=== PATIENT | male | born 1980 | race African-American/Black ===

== ENCOUNTER 2017-10-01 23:26 | Emergency (ER) | payer MEDICAID ==
[~2017-10-01] VITALS: Ht 198.1 cm; Wt 95.3 kg
[2017-10-01 23:45] VITALS: BP 128/72
[2017-10-01] MEDS ORDERED: DiphenhydrAMINE 50mg/ml Inj IVP ONE (23:45)
[2017-10-01] MEDS ORDERED: Solu-MEDROL 125mg Inj IVP ONE (23:45)
[2017-10-01] MEDS ORDERED: PREDNISONE20 MG ORAL (23:48)
[2017-10-01] MEDS ORDERED: BENADRYL25 MG ORAL (23:48)
[2017-10-01] MEDS ORDERED: EPIPEN 2-P0.3 MG/0.3 IM (23:48)
--- NOTE | 2017-10-01 23:48 | Emergency Room Report ---
History of Present Illness General Chief Complaint: Allergic Reaction Source: Patient, EMS Present Illness HPI Is a 36-year-old male with a history of severe allergic reaction to peanut. He presents with chief complaint of a rash and itching to the body. He was at his sister home. He had two burritos and drinks. He stopped by a don't of place and had glazed doughnuts. Shortly afterward he broke out in a rash. Itching. No tongue problem. He had an EpiPen in the past. He called 911. No meds were given. No shortness of breath. No nausea no vomiting. Allergies: Uncoded Allergies: PEANUTS (Allergy, Unknown, 10/01/17) Patient History Past Medical History: see triage record, old chart reviewed Past Surgical History: none Pertinent Family History: none Social History: Denies: smoking Immunizations: other Reviewed Nursing Documentation: PMH: Agreed; PSxH: Agreed Nursing Documentation-PMH Past Medical History: No Stated History Review of Systems Eye: Denies: eye pain, blurred vision ENT: Denies: ear pain, nose congestion, throat swelling Respiratory: Denies: cough, shortness of breath Cardiovascular: Denies: chest pain, palpitations Gastrointestinal: Denies: abdominal pain, diarrhea, nausea, vomiting Musculoskeletal: Denies: back pain, joint pain Skin: Reports: rash Neurological: Denies: headache, numbness Endocrine: Denies: increased thirst, increased urine Hematologic/Lymphatic: Denies: easy bruising All Other Systems: negative except mentioned in HPI Physical Exam Vital Signs Date Time Temp Pulse Resp B/P (MAP) Pulse Ox O2 Delivery O2 Flow Rate FiO2 10/01/17 23:25 98.4 64 16 128/72 100 Room Air 98.4 vitals normal Sp02 EP Interpretation: reviewed, normal General Appearance: well appearing, no apparent distress, alert Head: normocephalic, atraumatic Eyes: bilateral eye PERRL, bilateral eye EOMI ENT: hearing grossly normal, normal pharynx Neck: full range of motion, supple, no meningismus Respiratory: chest non-tender, lungs clear, normal breath sounds Cardiovascular #1: regular rate, rhythm, no murmur Gastrointestinal: normal bowel sounds, non tender, no mass, no organomegaly, no bruit, non-distended Musculoskeletal: back normal, gait/station normal, normal range of motion Psychiatric: mood/affect normal Skin: warm/dry, other - diffuse urticaria Medical Decision Making Diagnostic Impression: Primary Impression: Allergic reaction Qualified Codes: T78.40XA - Allergy, unspecified, initial encounter ER Course Patient has allergic reaction, most likely peanuts. This could be from the oil used in cooking the doughnut or it was next to a peanut containing doughnut. No respiratory issue. No anaphylaxis. We'll discharge home after medication. Last Vital Signs Date Time Temp Pulse Resp B/P (MAP) Pulse Ox O2 Delivery O2 Flow Rate FiO2 10/01/17 23:25 98.4 64 16 128/72 100 Room Air 98.4 Status: improved Disposition: HOME, SELF-CARE Condition: Stable Scripts Diphenhydramine Hcl* (BENADRYL*) 25 Mg Capsule 50 MG ORAL Q6H PRN for Itching, #30 CAP Prov: KVNG CARREON M.D. 10/01/17 Prednisone* (PREDNISONE*) 20 Mg Tablet 60 MG ORAL DAILY, #9 TAB Prov: KVNG CARREON M.D. 10/01/17 Epinephrine (Epipen 2-Devon) 0.3 Mg/0.3 Ml Auto.injct 0.3 MG IM ONCE, #1 EA Prov: KVNG CARREON M.D. 10/01/17 Patient Instructions: Food Allergy Additional Instructions: Follow-up your doctor in 3-5 days if not better. Return if worse. KVNG CARREON M.D. Oct 01, 2017 23:48
[2017-10-02 05:42] VITALS: BP_SYST 127; BP_SYST 128; BP_DIAS 68; BP_DIAS 72
== END 2017-10-02 05:43 | disposition home or self-care (01) ==
LOC: EDBD 23:26 → EMR 23:42
DX: L50.0 Allergic urticaria (principal); Z91.010 Allergy to peanuts
CPT/HCPCS: 96372; 99283; J1200; J2930